=== PATIENT | female | born 1965 | race African-American/Black ===

== ENCOUNTER 2018-09-10 16:49 | Inpatient (IN) | payer BC, OTHER ==
[~2018-09-10] VITALS: Ht 160 cm; Wt 40.9 kg
[~2018-09-10 16:49] MED LIST: LISI10TA5 PO
[2018-09-10] MEDS ORDERED: SODIUM CHLORIDE 0.9% 1000ML BAG (SEPSIS BOLUS) IV ONE (18:30)
[2018-09-10 19:42] LABS: HEMATOCRIT. 21.1 % (36.0-48.0); MEAN CORPUSCULAR HEMOGLOBIN 24.2 pg (28.0-32.0); MEAN CORPUSCULAR VOLUME 78.5 fL (81.0-99.0); MEAN PLATELET VOLUME 8.4 fl (7.4-10.4); PLATELET 182 x1000/uL (130-400); RED BLOOD CELL COUNT 2.69 mill/uL (4.2-5.4); RED CELL DISTRIBUTION WIDTH 20.9 % (11.6-14.6)
[2018-09-10 19:43] LABS: HEMOGLOBIN. 6.5 g/dL (12.0-16.0)
[2018-09-10 19:47] LABS: INR 1.4; PROTHROMBIN TIME 14.1 sec (9.1-11.1)
[2018-09-10 20:06] LABS: CLARITY URINE CLOUDY (CLEAR); COLOR URINE AMBER (YELLOW); KETONES URINE NEGATIVE (NEGATIVE); LEUKOCYTE ESTERASE URINE 1+ (NEGATIVE); NITRITE URINE NEGATIVE (NEGATIVE); OCCULT BLOOD URINE NEGATIVE (NEGATIVE); PROTEIN URINE 1+ (NEGATIVE); SPECIFIC GRAVITY URINE 1.014 (1.005-1.030)
[2018-09-10 20:11] LABS: CHLORIDE 106 mEq/L (98-107)
[2018-09-10] MEDS ORDERED: VANCOMYCIN 1 G PREMIX 200 ML IV STA (20:26)
[2018-09-10] MEDS ORDERED: SODIUM CHLORIDE 0.9% 1,000 ML IV NR (20:30)
[2018-09-10] MEDS ORDERED: POTASSIUM CHLORIDE 20MEQ TABLET SR PO ONE (20:30)
[2018-09-10] MEDS ORDERED: CEFEPIME 1,000 MG in DEXTROSE 5% WATER 50 ML IV NR (20:35)
[2018-09-10 20:42] LABS: PLATELET ESTIMATE NORMAL
[2018-09-10] MEDS ORDERED: LACTATED RINGERS 1,000 ML IV STA (20:48)
[2018-09-10] MEDS ORDERED: ONDANSETRON HCL 4MG/2ML INJ IV PRN (21:00)
[2018-09-10] MEDS ORDERED: CLONIDINE 0.1MG TABLET PO PRN (21:00)
[2018-09-10] MEDS ORDERED: DOCUSATE SODIUM 100MG CAPSULE PO PRN (21:00)
[2018-09-10] MEDS ORDERED: GUAIFENESIN 200MG/10ML SUGAR FREE UDC PO PRN (21:00)
[2018-09-10] MEDS ORDERED: LORAZEPAM 0.5MG TABLET PO PRN (21:00)
[2018-09-10] MEDS ORDERED: MAGNESIUM/ALUMINUM HYDROXIDE/SIMETHICONE 30ML UDC PO PRN (21:00)
[2018-09-10] MEDS ORDERED: IPRATROPIUM/ALBUTEROL 0.5-3(2.5)MG/3ML NEB INH PRN (21:00)
[2018-09-10] MEDS ORDERED: NA PHOS,M-B/NA PHOS,DI-BA ENEMA 118ML PR PRN (21:00)
[2018-09-10] MEDS ORDERED: ACETAMINOPHEN 325MG TABLET PO PRN (21:00)
[2018-09-10] MEDS ORDERED: LEVOFLOXACIN 500MG PREMIX 100 ML IV SCH (21:00)
[2018-09-10] MEDS ORDERED: CALCITONIN,SALMON, 3.7 ML NASAL SPRAY ONENSTRL STA (21:16)
[2018-09-10 21:35] LABS: T4 FREE 0.96 ng/dL (0.76-1.46)
[2018-09-10] MEDS ORDERED: KCL 20MEQ/100ML PREMIX 100 ML IV NR (21:45)
[2018-09-10 21:56] LABS: FOLIC ACID (FOLATE) SERUM 11.4 ng/mL (>5.38)
[2018-09-11] VITALS (18 sets, daily range): BP systolic 93–125; BP diastolic 56–84
[2018-09-11 00:09] LABS: ETHANOL BLOOD < 10 mg/dL
[2018-09-11 00:16] LABS: CREATINE KINASE MB FRACTION < 1.0 ng/mL (0.5-3.6)
[2018-09-11] MEDS ORDERED: POTASSIUM CHLORIDE 20MEQ TABLET SR PO NR (02:00)
[2018-09-11] MEDS ORDERED: SODIUM CHLORIDE 0.9% 1,000 ML IV SCH (02:00)
[2018-09-11] MEDS ORDERED: PANTOPRAZOLE 80 MG in SODIUM CHLORIDE 0.9% 100 ML IV SCH (03:00)
[2018-09-11] MEDS: PANTOPRAZOLE 80 MG in SODIUM CHLORIDE 0.9% 100 ML IV SCH ×2 (03:22→23:00)
[2018-09-11] MEDS ORDERED: PAMIDRONATE DISODIUM 90 MG in SODIUM CHLORIDE 0.9% 500 ML IV NR (04:00)
[2018-09-11] MEDS ORDERED: LEVOFLOXACIN 500MG PREMIX 100 ML IV SCH ×2 (06:00→18:00)
[2018-09-11 07:59] LABS: CREATINE KINASE MB FRACTION < 1.0 ng/mL (0.5-3.6)
[2018-09-11] MEDS ORDERED: CEFTRIAXONE 1 G PREMIX 50 ML IV SCH (09:00)
[2018-09-11 09:51] LABS: HEMATOCRIT. 23.1 % (36.0-48.0); HEMOGLOBIN. 7.3 g/dL (12.0-16.0); MEAN CORPUSCULAR HEMOGLOBIN 25.6 pg (28.0-32.0); MEAN CORPUSCULAR VOLUME 81.2 fL (81.0-99.0); MEAN PLATELET VOLUME 7.6 fl (7.4-10.4); PLATELET 141 x1000/uL (130-400); RED BLOOD CELL COUNT 2.85 mill/uL (4.2-5.4); RED CELL DISTRIBUTION WIDTH 19.4 % (11.6-14.6)
[2018-09-11 09:58] LABS: CHLORIDE 113 mEq/L (98-107)
[2018-09-11] MEDS ORDERED: POTASSIUM CHLORIDE 20MEQ/PACKET PO SCH (10:15)
[2018-09-11 10:21] LABS: PHOSPHORUS 2.5 mg/dL (2.5-4.9)
[2018-09-11 10:22] LABS: TOTAL IRON BINDING CAPACITY 88 ug/dL (250-450)
[2018-09-11 10:35] LABS: PLATELET ESTIMATE NORMAL
[2018-09-11] MEDS: CEFTRIAXONE 1 G PREMIX 50 ML IV SCH (11:10)
[2018-09-11] MEDS: SODIUM CHLORIDE 0.45% 1,000 ML IV SCH ×2 (11:31→21:12)
[2018-09-11 17:41] LABS: CHLORIDE 113 mEq/L (98-107)
[2018-09-12] VITALS (9 sets, daily range): BP systolic 108–137; BP diastolic 64–78
[2018-09-12] MEDS: SODIUM CHLORIDE 0.45% 1,000 ML IV SCH ×2 (03:30→09:23)
[2018-09-12 05:52] LABS: HEMATOCRIT. 25.5 % (36.0-48.0); HEMOGLOBIN. 8.1 g/dL (12.0-16.0); MEAN CORPUSCULAR HEMOGLOBIN 26.1 pg (28.0-32.0); MEAN PLATELET VOLUME 8.6 fl (7.4-10.4); PLATELET 128 x1000/uL (130-400); RED BLOOD CELL COUNT 3.11 mill/uL (4.2-5.4); RED CELL DISTRIBUTION WIDTH 19.8 % (11.6-14.6)
[2018-09-12 07:21] LABS: CHLORIDE 109 mEq/L (98-107)
[2018-09-12] MEDS: CEFTRIAXONE 1 G PREMIX 50 ML IV SCH (09:23)
[2018-09-12 13:42] LABS: PLATELET ESTIMATE SLIGHTLY DECREASED
[2018-09-12] MEDS ORDERED: POTASSIUM CHLORIDE 20MEQ TABLET SR PO NR (14:30)
== END 2018-09-12 14:30 | disposition short-term general hospital (02) | DRG 871 ==
LOC: ER 16:49 → EDBEDREQ 18:55 → EDBEDREQTM 18:55 → 5EST 20:52 → EDBEDREQ 20:55 → EDBEDREQTM 20:55 → ENRESERV 21:16 → EDBEDREQ 22:03 → 5EST 09-11 04:58
PROVIDERS: ADMIT Internal Medicine; ATTEND Internal Medicine
PROC: 30233N1 Transfusion of Nonautologous Red Blood Cells into Peripheral Vein, Percutaneous Approach (ICD-10-PCS; principal; 2018-09-11)
DX: A41.9 Sepsis, unspecified organism (principal); E43 Unspecified severe protein-calorie malnutrition; G92 Toxic encephalopathy; S06.9X9A Unspecified intracranial injury with loss of consciousness of unspecified duration, initial encounter; D68.9 Coagulation defect, unspecified; E87.0 Hyperosmolality and hypernatremia; N39.0 Urinary tract infection, site not specified; Z68.1 Body mass index [BMI] 19.9 or less, adult; D64.9 Anemia, unspecified; D86.9 Sarcoidosis, unspecified; E83.39 Other disorders of phosphorus metabolism; E83.51 Hypocalcemia; E83.52 Hypercalcemia; E86.0 Dehydration; E87.6 Hypokalemia; I51.7 Cardiomegaly; W18.39XA Other fall on same level, initial encounter; R62.7 Adult failure to thrive; Z91.14 Patient's other noncompliance with medication regimen; Y93.89 Activity, other specified; Y92.098 Other place in other non-institutional residence as the place of occurrence of the external cause; Y99.8 Other external cause status
CPT/HCPCS: 36415; 71045; 74176; 80048; 80061; 82553; 82570; 82607; 82746; 83036; 83540; 83550; 83605; 83735; 83935; 83970; 84100; 84145; 84156; 84300; 84439; 84443; 84484; 86850; 86900; 86920; 93005; 93306; 93970; 96361; 96365; 96366; 96367; 99291; C9113; G0482; J0692; J0696; J1956; J2430; J3370; J3480; J7030; J7040; J7050; J7060; P9016